=== PATIENT | male | born 1945 | race African-American/Black ===

== ENCOUNTER 2016-04-06 10:45 | Inpatient (IN) | payer BC, MEDICARE ==
[~2016-04-06] VITALS: Ht 175.3 cm; Wt 96.2 kg
[2016-04-06] MEDS ORDERED: ALBUTEROL SULFATE 2.5 MG/3 ML NEBU. CONT NEB ONE (11:30)
[2016-04-06] MEDS ORDERED: methylPREDNISolone SOD SUCC PF 125 MG/2 ML VIAL. IV ONE (11:30)
[2016-04-06 11:31] LABS: BASO % 0 % (0-3); EOS % 2 % (0-3); HEMOGLOBIN 14.7 g/dL (13.0-17.5); LYMPH # 0.5 x10^3/uL (1.0-4.8); LYMPH % 8 % (24-48); MEAN CORPUSCULAR HEMOGLOBIN 29 pg (25-35); MEAN CORPUSCULAR HGB CONC 34 g/dL (31-37); MEAN CORPUSCULAR VOLUME 85 fL (79-100); MONO % 10 % (0-9); NEUT % 80 % (31-73); PLATELET COUNT 194 x10^3/uL (140-400); RED BLOOD COUNT 5.17 x10^6/uL (4.30-5.70); RED CELL DISTRIBUTION WIDTH 14.7 % (11.5-14.5); WHITE BLOOD COUNT 6.7 x10^3/uL (4.0-11.0)
[2016-04-06 11:40] LABS: CALCIUM 8.7 mg/dL (8.5-10.1); CREATININE 1.3 mg/dL (0.7-1.3)
[2016-04-06 11:41] LABS: GFR 66.4
[2016-04-06 11:47] LABS: ALBUMIN 3.7 g/dL (3.4-5.0); ALBUMIN/GLOBULIN RATIO 1.1 (1.0-1.7); TOTAL BILIRUBIN 0.9 mg/dL (0.2-1.0); TOTAL PROTEIN 7.1 g/dL (6.4-8.2)
[2016-04-06 11:49] LABS: OBC FLU VALID
[2016-04-06 11:56] LABS: CKMB INDEX 0.1 % (0-4)
--- NOTE | 2016-04-06 12:00 | RAD ---
Portable chest, 04/06/2016: History: Shortness of breath, chest pain Comparison is made to a study from 10/06/2015. The heart size and pulmonary vascularity are normal. The lungs are clear. There is no evidence of pleural fluid. IMPRESSION: No acute cardiopulmonary abnormality is detected.
--- NOTE | 2016-04-06 12:17 | PHYS DOC ---
Past Medical History Past Medical History: Diabetes-Type II, Hypertension Past Surgical History: Other Additional Past Surgical Histo: R FOOT RECONSTRUCTION Additional Information: Nonsmoker Alcohol Use: Occasionally Drug Use: None Adult General Chief Complaint Chief Complaint: ASTHMA HPI HPI Patient is a 70 year old male who presents with productive cough and shortness of breath for 2 weeks. He has chest pain with his cough only. He reports chills , sore throat, nasal congestion. He denies known fever, ear pain, vomiting, or diarrhea. He has a history of asthma. He uses an albuterol inhaler and nebulizer machine as well as Advair Diskus for control of his asthma. He has not gotten relief from very frequent use of his inhaler and nebulizer at home over the last 2 days. He is unsure if he received a flu shot this year. His PCP is Dr. Dotson. His caul fat puller is Dr. Delaney. Review of Systems Review of Systems Constitutional: Reports chills with unknown fever. Eyes: Denies change in visual acuity, redness, or eye pain. [] HENT: Denies ear pain. Reports nasal congestion and sore throat. Respiratory: Reports productive cough and shortness of breath. Cardiovascular: Reports chest pain with coughing only. GI: Denies abdominal pain, nausea, vomiting, bloody stools or diarrhea. [] : Denies dysuria, hematuria or urinary frequency. [] Musculoskeletal: Denies back pain or joint pain. [] Integument: Denies rash or skin lesions. [] Neurologic: Denies headache, focal weakness or sensory changes. [] Endocrine: Denies polyuria or polydipsia. [] Psych: Denies anxiety or depression. [] All systems reviewed and negative unless otherwise stated in the HPI. Current Medications Current Medications Current Medications Medications (Trade) Dose Ordered Sig/Nathalie Start Time Stop Time Status Last Admin Dose Admin Albuterol Sulfate (Ventolin Neb Soln) 10 mg 1X ONCE 04/06/16 11:30 04/06/16 11:31 DC 04/06/16 11:42 10 MG Methylprednisolone Sodium Succinate (Solu-Medrol 125mg Vial) 125 mg 1X ONCE 04/06/16 11:30 04/06/16 11:31 DC 04/06/16 11:31 125 MG Allergies Allergies Allergies Coded Allergies Type Severity Reaction Last Updated Verified No Known Drug Allergies 04/06/16 No Physical Exam Physical Exam Constitutional: Well developed, well nourished, no acute distress, non-toxic appearance. [] HENT: Normocephalic, atraumatic, bilateral external ears normal, oropharynx moist, no oral exudates, nose normal. Bilateral TMs without erythema or bulging. There is no posterior pharyngeal erythema or tonsillar edema. Bilateral nasal turbinates are swollen and erythematous with purulent drainage. Eyes: PERRLA, EOMI, conjunctiva normal, no discharge. [] Neck: Normal range of motion, no tenderness, supple, no stridor. [] Cardiovascular: Heart regular, tachycardiac, no murmur. Lungs & Thorax: Bilateral breath sounds are diminished diffusely without wheezes, rales, or rhonchi. Mild respiratory distress. Skin: Warm, dry, no erythema, no rash. [] Extremities: No tenderness, no cyanosis, no clubbing, ROM intact, no edema. 2+ DP pulses bilaterally. Neurologic: Alert and oriented X 3, normal motor function, normal sensory function, no focal deficits noted. [] Psychologic: Affect normal, judgement normal, mood normal. [] Current Patient Data Vital Signs Vital Signs Date Time Temp Pulse Resp B/P Pulse Ox O2 Delivery O2 Flow Rate FiO2 04/06/16 13:25 99.9 123 19 142/71 93 Room Air 99.9 Lab Values Laboratory Tests Test 04/06/16 11:04 04/06/16 11:15 Influenza Type A Antigen Positive (NEGATIVE) Influenza Type B Antigen Negative (NEGATIVE) White Blood Count 6.7x10^3/uL (4.0-11.0) Red Blood Count 5.17x10^6/uL (4.30-5.70) Hemoglobin 14.7g/dL (13.0-17.5) Hematocrit 44.0% (39.0-53.0) Mean Corpuscular Volume 85fL (79-100) Mean Corpuscular Hemoglobin 29pg (25-35) Mean Corpuscular Hemoglobin Concent 34g/dL (31-37) Red Cell Distribution Width 14.7% (11.5-14.5) H Platelet Count 194x10^3/uL (140-400) Neutrophils (%) (Auto) 80% (31-73) H Lymphocytes (%) (Auto) 8% (24-48) L Monocytes (%) (Auto) 10% (0-9) H Eosinophils (%) (Auto) 2% (0-3) Basophils (%) (Auto) 0% (0-3) Neutrophils # (Auto) 5.3x10^3uL (1.8-7.7) Lymphocytes # (Auto) 0.5x10^3/uL (1.0-4.8) L Monocytes # (Auto) 0.6x10^3/uL (0.0-1.1) Eosinophils # (Auto) 0.2x10^3/uL (0.0-0.7) Basophils # (Auto) 0.0x10^3/uL (0.0-0.2) Sodium Level 143mmol/L (136-145) Potassium Level 4.0mmol/L (3.5-5.1) Chloride Level 105mmol/L (98-107) Carbon Dioxide Level 27mmol/L (21-32) Anion Gap 11 (6-14) Blood Urea Nitrogen 13mg/dL (8-26) Creatinine 1.3mg/dL (0.7-1.3) Estimated GFR (Cockcroft-Gault) 66.4 BUN/Creatinine Ratio 10 (6-20) Glucose Level 152mg/dL (70-99) H Calcium Level 8.7mg/dL (8.5-10.1) Total Bilirubin 0.9mg/dL (0.2-1.0) Aspartate Amino Transferase (AST) 38U/L (15-37) H Alanine Aminotransferase (ALT) 32U/L (16-63) Alkaline Phosphatase 119U/L (46-116) H Creatine Kinase 2184U/L (39-308) H Creatine Kinase MB (Mass) 3.0ng/mL (0.0-3.6) Creatine Kinase MB Relative Index 0.1% (0-4) Troponin I Quantitative < 0.017ng/mL (0.000-0.055) KU-Sto-D-Type Natriuretic Peptide 252pg/mL (0-124) H Total Protein 7.1g/dL (6.4-8.2) Albumin 3.7g/dL (3.4-5.0) Albumin/Globulin Ratio 1.1 (1.0-1.7) Laboratory Tests 04/06/16 11:15 Laboratory Tests 04/06/16 11:15 EKG EKG EKG at 1106. Heart rate 130 bpm. Sinus tachycardia without acute ischemic changes or STEMI, as interpreted by Dr. Escamilla. Radiology/Procedures Radiology/Procedures REASON: cough, soa, cp PROCEDURE: PORTABLE CHEST 1V Portable chest, 04/06/2016: History: Shortness of breath, chest pain Comparison is made to a study from 10/06/2015. The heart size and pulmonary vascularity are normal. The lungs are clear. There is no evidence of pleural fluid. IMPRESSION: No acute cardiopulmonary abnormality is detected. Course & Med Decision Making Course & Med Decision Making Pertinent Labs and Imaging studies reviewed. (See chart for details) Patient presents with productive cough and shortness of breath for 2 days. On exam, his lungs sounds are diffusely diminished. He received a 1 hour nebulizer albuterol treatment in the emergency department. He reported improved breathing with increased air movement with auscultation. He has mild wheezes diffusely without rales or rhonchi. His oxygen saturation is 91% on room air after the hour-long treatment. Chest x-ray does not show any focal infiltrates. He is positive for influenza. There are no significant laboratory abnormalities. EKG shows a sinus tachycardia, likely due to albuterol use. He was also given IV Solu-Medrol and IV fluids. I offered admission to the hospital for asthma exacerbation with influenza. The patient agrees with plan to stay in the hospital for nebulizer treatments, steroids, and supportive oxygen. His PCP, Dr. Phillip, accepts admission. He remained stable in the emergency department. Dragon Disclaimer Dragon Disclaimer This electronic medical record was generated, in whole or in part, using a voice recognition dictation system. Departure Departure Impression: Primary Impression: Asthma exacerbation Additional Impression: Influenza A Disposition: 09 ADMITTED INPATIENT Admitting Physician: Sanchez Dotson Condition: IMPROVED Referrals: SANCHEZ DOTSON MD (PCP) Problem Qualifiers TENZIN BOWENS Apr 06, 2016 12:17
--- NOTE | 2016-04-06 12:57 | EKG ---
[facility] [address] [place] [address] Test Date: 2016-04-06 Test Time: 11:06:16 Pat Name: ELPIDIO ESCOBEDO Department: Room: Gender: M Speech Therapy Director: : 1945 Requested By: TENZIN BOWENS Order Number: [id number] Reading MD: Measurements Intervals Edmond Rate: 130 P: -71 WI: 158 QRS: 103 QRSD: 88 T: 63 QT: 294 QTc: 439 Interpretive Statements SUPRAVENTRICULAR RHYTHM RIGHTWARD AXIS QRS(T) CONTOUR ABNORMALITY CONSISTENT WITH ANTEROSEPTAL INFARCT AGE UNDETERMINED ABNORMAL ECG RI6.01
[2016-04-06] MEDS ORDERED: IV NORMAL SALINE 1000ML BAG 1,000 ML IV ONE (14:30)
[2016-04-06] MEDS ORDERED: ACETAMINOPHEN 325 MG TABLET. PO ONE (14:30)
[2016-04-06] MEDS: OSELTAMIVIR 75 MG CAPSULE PO SCH ×2 (14:42→21:20)
[2016-04-06] MEDS: IPRATRPIUM/ALBUTEROL 0.5/2.5MG 3 ML NEBU. NEB SCH ×3 (14:46→21:31)
--- NOTE | 2016-04-06 16:10 | ACF ---
Admission Forms Criteria ASTHMA Clinical Indications for Admission to Inpatient Care (Place 'X' for any and all applicable criteria): Admission is indicated for ANY ONE of the following (1)(2)(3)(4)(5): [ ]I. Absent or markedly diminished breath sounds (silent chest) [ ]II. Oxygen saturation < 92% [ ]III. PaCO2 = / > 42 mm Hg (5.6 kPa) [ ]IV. Peak expiratory flow rate < 40% of predicted or personal best after treatment. [ ]V. Peak expiratory flow rate < 33% of predicted or personal before after treatment [ ]. Change in mental status [ ]VII. Ventilatory support required [ ]VIII. PaO2 < 60 mm Hg (8.0 kPa) [ ]IX. Cyanosis [ ]X. Cardiac dysrhythmia (e.g., bradycardia) [ ]XI. Hemodynamic instability [ ]XII. Radiographic evidence of complication requiring inpatient treatment (e.g., pneumonia, pneumothorax) [X]XIII. Inpatient admission required rather than observation care (also use Asthma: Observation Care guideline as appropriate) because of ANY ONE of the following: [X]a) Respiratory finding that is severe or persistent (eg, dyspnea, tachypnea, accessory muscle use) [ ]b) Airflow measurements less than 60% of predicted or personal best that persist (e.g., over 24 hours) or worsen despite treatments [ ]c) Supplemental oxygen or respiratory treatments for over 24 hours that are performable only in acute inpatient setting [ ]d) Other condition, treatment or monitoring requiring inpatient admission. Extended stay beyond goal length of stay may be needed for (26)(27)(28): [ ]a) Severe respiratory failure (23) (29) (30) [ ]b) Secondary causes and complications (25) [ ]c) Status asthmaticus [ ]d) Chronic obstructive asthma [ ]e) Older patients (29) [ ]f) Slow resolution [ ]g) Clinically significant exacerbation of comorbidities (eg, lupillo. heart failure, atrial fibrillation) The original [employer] content created by [employer] has been revised. The portions of the content which have been revised are identified through the use of italic text or in bold, and [facility] [employer] has neither reviewed nor approved the modified material. All other unmodified content is copyright [facility] Please see references footnoted in the original [facility] edition 2016 Admission Criteria Met?: Yes VANNESSA PARIS Apr 06, 2016 16:10
[2016-04-06] MEDS ORDERED: INSU100I13 SQ (17:28)
[2016-04-06] MEDS ORDERED: INSU100I17 SQ (17:30)
[2016-04-06] MEDS ORDERED: FLUT1DIS5 IH (17:30)
[2016-04-06] MEDS ORDERED: PROAIR HFA8.5 GM INH (17:31)
[2016-04-06] MEDS ORDERED: ALBU2.5V5 NEB (17:32)
[2016-04-06] MEDS ORDERED: VALS160T3 PO (17:33)
[2016-04-06] MEDS ORDERED: GABA-586 PO (17:44)
[2016-04-06 18:24] VITALS: BP 166/88
[2016-04-06 19:38] VITALS: BP 154/81
[2016-04-06] MEDS ORDERED: ALBUTEROL SULFATE 2.5 MG/3 ML NEBU. NEB PRN (22:45)
[2016-04-06] MEDS ORDERED: DEXTROSE 50% 25 GM / 50ML DISP.SYRIN. IV PRN (22:45)
[2016-04-06] MEDS ORDERED: NON FORMULARY ITEM (Albuterol Sulfate (Proair Hfa Inhaler) 1 PUFF) INH SCH (22:45)
[2016-04-06 23:23] VITALS: BP 150/79
[2016-04-07] MEDS ORDERED: INSULIN DETEMIR 300 UNITS/3 ML INSULN.PEN. SQ SCH ×2 (00:15→21:00)
[2016-04-07] MEDS: IV NORMAL SALINE 1000ML BAG 1,000 ML IV SCH ×2 (00:42→10:38)
[2016-04-07 03:56] VITALS: BP 122/73
[2016-04-07 07:46] VITALS: BP 136/76
[2016-04-07] MEDS ORDERED: BUDESONIDE 0.5 MG/2 ML NEBU NEB SCH (08:00)
[2016-04-07] MEDS: ALBUTEROL SULFATE 2.5 MG/3 ML NEBU. NEB SCH ×2 (08:00→11:46)
[2016-04-07] MEDS: IPRATRPIUM/ALBUTEROL 0.5/2.5MG 3 ML NEBU. NEB SCH (08:12)
[2016-04-07] MEDS ORDERED: INFLUENZA VAX SCREEN BY RX. MC PRN (08:15)
[2016-04-07] MEDS ORDERED: FLU VACC QUAD 2016-17 (36MOS+)/PF 0.5 ML SYRINGE. VAX IM ONE (08:30)
[2016-04-07] MEDS: OSELTAMIVIR 75 MG CAPSULE PO SCH (08:37)
[2016-04-07] MEDS: INSULIN ASPART 300 UNITS/3 ML INSULN.PEN SQ SCH ×4 (08:39→12:00)
[2016-04-07] MEDS ORDERED: LOSARTAN POTASSIUM 50 MG TABLET. PO SCH (09:00)
[2016-04-07] MEDS ORDERED: NON FORMULARY ITEM (Fluticasone/Salmeterol (Advair 500-50 Diskus) 1 PUFF) IH SCH (09:00)
[2016-04-07] MEDS ORDERED: GABAPENTIN 300 MG CAPSULE. PO SCH (09:00)
[2016-04-07] MEDS ORDERED: IPRA3AMP NEB (09:30)
[2016-04-07] MEDS ORDERED: METH4TAB2 PO (09:30)
[2016-04-07] MEDS ORDERED: AZIT250T PO (09:30)
[2016-04-07] MEDS ORDERED: OSEL75CA PO (09:30)
--- NOTE | 2016-04-07 09:33 | PDOC ---
OBJECTIVE Vital Signs Vital Signs Date Time Temp Pulse Resp B/P Pulse Ox O2 Delivery O2 Flow Rate FiO2 04/07/16 08:37 98 136/76 04/07/16 08:14 95 Room Air 04/07/16 08:00 Room Air 04/07/16 07:46 97.7 98 16 136/76 96 Room Air 97.7 04/07/16 03:56 96.8 104 16 122/73 95 Room Air 96.8 04/06/16 23:23 97.9 116 16 150/79 95 Room Air 97.9 04/06/16 21:34 97 Room Air 04/06/16 20:00 Nasal Cannula 2.0 04/06/16 19:38 97.5 117 16 154/81 93 Room Air 97.5 04/06/16 18:25 Room Air 04/06/16 18:24 97.7 110 18 166/88 93 Room Air 97.7 04/06/16 16:40 120 25 139/72 94 Nasal Cannula 2 04/06/16 16:10 122 29 178/88 92 Nasal Cannula 2 04/06/16 15:10 126 29 137/80 95 Nasal Cannula 2 04/06/16 14:46 96 Nasal Cannula 2.0 04/06/16 14:13 134 30 128/79 93 Nasal Cannula 2 04/06/16 13:25 99.9 123 19 142/71 93 Room Air 99.9 04/06/16 12:26 128 27 129/61 Room Air 04/06/16 11:56 130 32 140/67 99 Room Air 04/06/16 11:43 94 Room Air 04/06/16 11:26 132 27 138/67 97 Room Air 04/06/16 11:00 99.7 127 28 172/84 93 Room Air 99.7 I & O Intake and Output 04/07/16 07:00 Intake Total 210 ml Balance 210 ml Intake Oral 210 ml # Voids 2 # Bowel Movements 2 ASSESSMENT/PLAN Assessment/Plan [id number] H&P dictated Problems: COMMENT Lab Laboratory Tests Test 04/06/16 11:04 04/06/16 11:15 04/06/16 21:27 04/07/16 07:38 Influenza Type A Antigen Positive (NEGATIVE) Influenza Type B Antigen Negative (NEGATIVE) White Blood Count 6.7x10^3/uL (4.0-11.0) Red Blood Count 5.17x10^6/uL (4.30-5.70) Hemoglobin 14.7g/dL (13.0-17.5) Hematocrit 44.0% (39.0-53.0) Mean Corpuscular Volume 85fL (79-100) Mean Corpuscular Hemoglobin 29pg (25-35) Mean Corpuscular Hemoglobin Concent 34g/dL (31-37) Red Cell Distribution Width 14.7% (11.5-14.5) Platelet Count 194x10^3/uL (140-400) Neutrophils (%) (Auto) 80% (31-73) Lymphocytes (%) (Auto) 8% (24-48) Monocytes (%) (Auto) 10% (0-9) Eosinophils (%) (Auto) 2% (0-3) Basophils (%) (Auto) 0% (0-3) Neutrophils # (Auto) 5.3x10^3uL (1.8-7.7) Lymphocytes # (Auto) 0.5x10^3/uL (1.0-4.8) Monocytes # (Auto) 0.6x10^3/uL (0.0-1.1) Eosinophils # (Auto) 0.2x10^3/uL (0.0-0.7) Basophils # (Auto) 0.0x10^3/uL (0.0-0.2) Sodium Level 143mmol/L (136-145) Potassium Level 4.0mmol/L (3.5-5.1) Chloride Level 105mmol/L (98-107) Carbon Dioxide Level 27mmol/L (21-32) Anion Gap 11 (6-14) Blood Urea Nitrogen 13mg/dL (8-26) Creatinine 1.3mg/dL (0.7-1.3) Estimated GFR (Cockcroft-Gault) 66.4 BUN/Creatinine Ratio 10 (6-20) Glucose Level 152mg/dL (70-99) Calcium Level 8.7mg/dL (8.5-10.1) Total Bilirubin 0.9mg/dL (0.2-1.0) Aspartate Amino Transf (AST/SGOT) 38U/L (15-37) Alanine Aminotransferase (ALT/SGPT) 32U/L (16-63) Alkaline Phosphatase 119U/L (46-116) Creatine Kinase 2184U/L (39-308) Creatine Kinase MB (Mass) 3.0ng/mL (0.0-3.6) Creatine Kinase MB Relative Index 0.1% (0-4) Troponin I Quantitative < 0.017ng/mL (0.000-0.055) XA-Nwq-U-Type Natriuretic Peptide 252pg/mL (0-124) Total Protein 7.1g/dL (6.4-8.2) Albumin 3.7g/dL (3.4-5.0) Albumin/Globulin Ratio 1.1 (1.0-1.7) Glucose (Fingerstick) 372mg/dL (70-99) 178mg/dL (70-99) SANCHEZ DOTSON MD Apr 07, 2016 09:33
--- NOTE | 2016-04-07 09:33 | PDOC3 ---
Discharge Summary* Date of Admission: Apr 06, 2016 Date of Discharge: Apr 07, 2016 Admitting Diagnosis Problems Medical Problems: (1) Asthma exacerbation Status: Acute (2) Influenza A Status: Acute Final Diagnosis 1- Flu A 2-Asthma/COPD exacerbation 3-HTN 4- Hx elevated PSA 5- osteoarthritis Problems Medical Problems: (1) Asthma exacerbation Status: Acute (2) Influenza A Status: Acute Procedures CXR venous doppler R leg neg Brief Hospital Course Mr. Alvarez is a 70 old [sex] who presented with [ ] Disposition/Orders: D/C to Home CONDITION AT DISCHARGE: Improved Diet: Cardiac, Consistent Carbohydrate Scheduled Albuterol Sulfate (Proair Hfa Inhaler) 1 PUFF INH PRN Q6HRS (Reported) Azithromycin (Zithromax) 1 PKG PO UD Fluticasone/Salmeterol (Advair 500-50 Diskus) 1 PUFF IH BID (Reported) Gabapentin (Gabapentin) 300 MG PO DAILY (Reported) Insulin Aspart (Novolog Flexpen) 18 UNIT SQ TIDBFRMEAL (Reported) Insulin Glargine,Hum.rec.anlog (Lantus Solostar) 60 UNIT SQ QHS (Reported) Ipratropium/Albuterol Sulfate (Duoneb 0.5-3(2.5) Mg/3 Ml) 3 ML NEB RTQID Methylprednisolone (Medrol) 4 MG PO DAILY Oseltamivir Phosphate (Tamiflu) 75 MG PO BID Valsartan (Diovan) 160 MG PO DAILY (Reported) Discontinued Medications Albuterol Sulfate (Albuterol Sulfate Neb Soln) 2.5 MG NEB PRN (Reported) FOLLOW UP APPOINTMENT: Gary 2 weeks Time Spent Total time spent with patient [] minutes for coordination of care, counseling, and education. SANCHEZ DOTSON MD Apr 07, 2016 09:33
[2016-04-07 11:09] VITALS: BP 126/76
--- NOTE | 2016-04-07 12:18 | RAD ---
INDICATION: Right leg swelling COMPARISON: None. TECHNIQUE: Grayscale, color and spectral doppler ultrasound images were obtained of the right lower extremity venous vasculature. RIGHT: No thrombus identified in the common femoral vein, femoral vein, popliteal vein or visualized calf veins. IMPRESSION: 1. No thrombus identified in deep venous system of right lower extremity.
[2016-04-07 15:06] VITALS: BP 129/80
--- NOTE | 2016-04-08 00:54 | HP ---
ADMIT DATE: HISTORY OF PRESENT ILLNESS: The patient is a 70-year-old gentleman who presented to the Emergency Room complaining of a cough productive to yellowish sputum and some shortness of breath of 2 weeks' duration. He also had some chest pain with cough. He reported chills, sore throat, nasal congestion. Denies fever, nausea, vomiting, diarrhea. He does have a history of asthma and COPD. He uses his nebulizer, but did not seem to give him relief at home. He presented to the Emergency Room when he felt that he could not breathe. PAST MEDICAL HISTORY: Significant for hypertension, asthma, COPD, arthritis, diabetes mellitus. Does have also history of PSA elevation that apparently was worked up and the urologist has assured him that it was not cancer. Records of that is not available to me at this point. REVIEW OF SYSTEMS: CONSTITUTIONAL: Reports chills, but not sure if he is having fever. EYES: Denies changes in his vision. HEENT: He does have congestion and sore throat. RESPIRATORY: He does report shortness of breath and wheezing. CARDIOVASCULAR: Reports chest wall pain with coughing. GASTROINTESTINAL: Denies nausea, vomiting or diarrhea. GENITOURINARY: Denies dysuria. MUSCULOSKELETAL: He does have arthritis pain. NEUROLOGY: No acute changes, no focal weakness, no headache. DERMATOLOGIC: No rashes. PHYSICAL EXAMINATION: GENERAL: He is alert and oriented. HEENT: Normocephalic, atraumatic. EYES: Conjunctivae color is normal. NECK: Supple. CARDIOVASCULAR: Heart has regular rate and rhythm. Mildly tachycardic. LUNGS: With bilateral wheezes and decreased air movement. SKIN: Warm and dry. EXTREMITIES: He does have chronic edema in the right lower extremity. Mild calf pain, left lower extremity normal. He has a history of injury to his right lower extremity. NEUROLOGIC: Normal with no focal deficit. His chest x-ray with no acute changes. IMPRESSION: 1. Acute asthma exacerbation. 2. Influenza A positive. 3. Hypertension and hypertensive cardiovascular disease. 4. Osteoarthritis. 5. Diabetes mellitus. 6. History of elevated PSA. SANCHEZ DOTSON MD DR: ARTI/sharon JOB#: [id number] / [id number]
== END 2016-04-07 15:30 | disposition home or self-care (01) | DRG 153 ==
LOC: ER 10:45 → ED HOLD 13:55 → 6 SOUTH 17:10
PROVIDERS: ADMIT Internal Medicine; ATTEND Internal Medicine
DX: J11.1 Influenza due to unidentified influenza virus with other respiratory manifestations (principal); J44.1 Chronic obstructive pulmonary disease with (acute) exacerbation; J45.901 Unspecified asthma with (acute) exacerbation; E11.9 Type 2 diabetes mellitus without complications; I11.9 Hypertensive heart disease without heart failure; M19.90 Unspecified osteoarthritis, unspecified site; Z79.899 Other long term (current) drug therapy
CPT/HCPCS: 36415; 71010; 80053; 82553; 82947; 83880; 84484; 85027; 87804; 90686; 93005; 93971; 94250; 94640; 94644; 94760; 96361; 96374; J1815; J2930; J7030; J7042; J7620; 99285-25

== ENCOUNTER → 2016-06-12 | Outpatient (CLI) | payer MEDICARE ==
[~2016-06-12] VITALS: Ht 175.3 cm; Wt 94.3 kg
[~2016-06-12] MED LIST: ALBU2.5V5 NEB; AZIT250T PO; FLUT1DIS5 IH; GABA-586 PO; INSU100I13 SQ; INSU100I17 SQ; IPRA3AMP NEB; LIDOCAINE 1% / SOD BICARB 8.4% 20 ML VIAL. IJ ONE; METH4TAB2 PO; OSEL75CA PO; PROAIR HFA8.5 GM INH; VALS160T3 PO
[2016-06-12 08:31] VITALS: BP 128/74
--- NOTE | 2016-06-12 12:23 | OP ---
DATE OF SURGERY: 06/12/2016 OPERATION: Transrectal ultrasound and prostate needle biopsy. SURGEON: Giovanni Durand MD. ANESTHESIA: Local. PREOPERATIVE DIAGNOSIS: Elevated prostate-specific antigen. POSTOPERATIVE DIAGNOSIS: Elevated prostate-specific antigen. INDICATIONS: The patient is a very pleasant 70-year-old -[place]in[place] male with history of elevated PSA in the 7 range last year, and this year on repeat, it is 6.1. No family history of any prostate cancer. No nodules on digital rectal examination. I have discussed with the patient the options, alternatives, benefits, risks, and possible complications of observation versus transrectal ultrasound of prostate and needle biopsies to rule out adenocarcinoma of the prostate. The patient understands this and does wish to proceed ahead with the operation. DESCRIPTION OF PROCEDURE: After obtaining an informed consent, the patient was taken to the ultrasound suite and placed in the left lateral decubitus position. The patient had taken his antibiotics preprocedurally, and he has antibiotics to take postprocedurally. The patient has been off his baby aspirin for the past 2 weeks, and he knows to be off of it for the next week before restarting it. Rectal examination was then performed. The patient had good sphincter tone. Prostate is smooth without nodules, overall size 40 grams by palpation. Transrectal ultrasound was then performed with the biplanar probe. Prostate was inspected in both transverse and sagittal planes. Bilateral prosthetic block was placed with 1% lidocaine plain. Prostate size was then calculated and found to be 55 cubic cm. No obvious hypoechoic areas were identified. Following this, Sextant biopsies were then obtained with the Bard biopty gun and biopty needle. Biopsies were sent for pathologic analysis. Following this, the probe was removed from the patient. The patient had just a moderate amount of oozing from the biopsy sites. The patient tolerated the procedure very well and left the procedure room in stable condition. The patient was given postprocedural instructions and told to finish off the antibiotic coverage for the procedure. We will contact the patient back with the results of his biopsies when they become available, and the patient has a followup appointment with Dr. Durand in Urology office on 07/06/2015 at 2:45. GIOVANNI DURAND MD DR: TOM/sharon JOB#: [id number] / [id number]
== END | disposition home or self-care (01) ==
LOC: US 07:55
PROVIDERS: ATTEND Urology
DX: R97.20 Elevated prostate specific antigen [PSA] (principal)
CPT/HCPCS: 55700; 76872; 76942

== ENCOUNTER → 2016-06-14 | Outpatient (CLI) | payer MEDICARE ==
[2016-06-12 08:31] VITALS: BP 128/74
[~2016-06-14] MED LIST changes: -LIDOCAINE 1% / SOD BICARB 8.4% 20 ML VIAL. IJ ONE
== END | disposition home or self-care (01) ==
LOC: ECHO 14:51
PROVIDERS: ATTEND Internal Medicine Cardiovascular Disease
DX: R94.31 Abnormal electrocardiogram [ECG] [EKG] (principal)
CPT/HCPCS: 93306

== ENCOUNTER → 2018-10-01 | Outpatient (CLI) | payer BC ==
[2018-08-11 15:43] VITALS: BP 185/84
[~2018-10-01] MED LIST changes: +ALBU2.5V8 INH; -GABA-586 PO; +GABA300C18 PO; -IPRA3AMP NEB; +IPRA3AMP29 NEB; -PROAIR HFA8.5 GM INH
--- NOTE | 2018-10-01 08:20 | RAD ---
EXAM: PA and Lateral Views of the Chest DATE: 10/01/2018 12:00 AM INDICATION: COPD COMPARISON: 06/27/2016 FINDINGS: Heart is not enlarged. Aorta is mildly tortuous. No lobar consolidation. No pleural effusion or pneumothorax. IMPRESSION: 1. No radiographic evidence for acute cardiopulmonary process. Electronically signed by: Bruce Craig MD (10/01/2018 8:17 AM) [facility]
--- NOTE | 2018-10-01 15:29 | RAD ---
KUB Clinical indications: Flank pain. FINDINGS: No obstructive bowel pattern is evident. There is mild fecal retention throughout the colon and rectum. Surgical clips are seen within the pelvis bilaterally. Calcified phleboliths are seen within the left side of the anatomic pelvis. No radiopaque stone is seen overlying either kidney. IMPRESSION: No obstructive bowel pattern. Electronically signed by: Fredi Rolon MD (10/01/2018 3:26 PM) [id number]
--- NOTE | 2018-10-01 15:38 | RAD ---
Three-view lumbar spine series Clinical indications: Low back pain FINDINGS: Transverse processes are intact. No compression fracture or discitis or lytic process or anterolisthesis is evident. Degenerative endplate spurring is seen throughout the lumbar spine. Degenerative disc space narrowing is seen at L3-4 Impression: No acute fracture. Electronically signed by: Fredi Rolon MD (10/01/2018 3:34 PM) [id number]
== END | disposition home or self-care (01) ==
LOC: RAD 06:30
PROVIDERS: ATTEND Physician Assistant Surgical
DX: J44.9 Chronic obstructive pulmonary disease, unspecified (principal); I87.8 Other specified disorders of veins; K59.09 Other constipation; M51.36 Other intervertebral disc degeneration, lumbar region; M48.061 Spinal stenosis, lumbar region without neurogenic claudication; M46.06 Spinal enthesopathy, lumbar region
CPT/HCPCS: 71046; 72100; 74018

== ENCOUNTER → 2019-05-26 | Outpatient (CLI) | payer BC ==
[2018-08-11 15:43] VITALS: BP 185/84
--- NOTE | 2019-05-26 12:19 | RAD ---
Chest PA and lateral: Reason for examination: Chest pain. Comparison is made to previous study dated 10/01/2018. The heart size is normal. Mediastinum is unremarkable. Lung gary are clear. No acute bony abnormalities are seen. Impression: No acute cardiopulmonary disease. Electronically signed by: Desirae Dye MD (05/26/2019 12:16 PM) [id number]
--- NOTE | 2019-05-26 13:59 | RAD ---
Abdominal ultrasound complete: Reason for examination: Chest and right flank pain. The pancreas is obscured by bowel gas. The visualized portion of the inferior vena cava shows no abnormality. The abdominal aorta is normal in course and caliber measuring 2 cm in greatest dimension. No aneurysm or dissection is apparent. The liver is homogeneous and normal in size at 17.8 cm with no focal lesion seen. Portal vein is patent. Gallbladder shows cholelithiasis without wall thickening. Common bile duct is normal in caliber at 3 mm. Right kidney measures 13.1 x 4.7 x 5.2 cm in greatest dimension with normal cortical medullary differentiation and good vascular flow. The left kidney measures 12.7 x 5.0 x 6.1 cm in greatest dimension and shows normal cortical medullary differentiation with good vascular flow. No renal masses or hydronephrosis are evident. The spleen is normal in size at 11.2 cm with no focal abnormality seen. IMPRESSION: Cholelithiasis. No other focal abnormality seen in the abdomen. Electronically signed by: Desirae Dye MD (05/26/2019 1:56 PM) [email or web address]
== END ==
LOC: RAD 11:38
PROVIDERS: ATTEND Family Medicine
DX: K80.20 Calculus of gallbladder without cholecystitis without obstruction (principal); R10.9 Unspecified abdominal pain
CPT/HCPCS: 71046; 76700

== ENCOUNTER 2019-06-13 08:00 | Day surgery (SDC) | payer BC ==
[~2019-06-13] VITALS: Ht 172.7 cm; Wt 93.9 kg
[~2019-06-13 08:00] MED LIST changes: +ACETAMINOPHEN 500 MG TABLET PO ONE; +CYCL10TA2 PO; +DICL75TA PO; +FLUT1BLS3 IH; +HYDROmorphone 2 MG/ML VIAL IV PRN; +ICOS1CAP PO; +INSU100V6 SQ; +IV RINGERS,LACTATED 1000ML 1,000 ML IV SCH; +LIDOCAINE 1% PF 2 ML VIAL. ID PRN; +LINA5TAB PO; +LOSA100T2 PO; +MONT10TA49 PO; +MORPHINE SULFATE 2 MG/ML VIAL. IV PRN; +ONDANSETRON PF 4 MG/2 ML VIAL. IV PRN; +PROCHLORPERAZINE 10 MG/2 ML VIAL. IV PRN; +fentaNYL PF VIAL 100 MCG/2 ML VIAL IV PRN
[2019-06-13] MEDS ORDERED: fentaNYL PF VIAL 100 MCG/2 ML VIAL ONE ×3 (08:06→10:37)
[2019-06-13] MEDS ORDERED: PROPOFOL 20 ML IV ONE (08:07)
[2019-06-13] MEDS ORDERED: ONDANSETRON PF 4 MG/2 ML VIAL. ONE (08:07)
[2019-06-13] MEDS ORDERED: DEXAMETHASONE SOD PHOS 4 MG/ML VIAL ONE (08:07)
[2019-06-13] MEDS ORDERED: SEVOFLURANE 61 TO 120 MINUTES. IH ONE (08:07)
[2019-06-13] MEDS ORDERED: LIDOCAINE 2% PF 5 ML VIAL. ONE (08:07)
[2019-06-13] MEDS: INSULIN LISPRO 100 UNIT/ML 3ML VIAL for OP,RR ONLY. SQ PRN ×2 (08:45→10:03)
[2019-06-13] MEDS ORDERED: BUPIVACAINE-EPI 0.25%-1:200000 MPF 30 ML VIAL. ONE (08:46)
[2019-06-13] MEDS ORDERED: SURGICEL HEMOSTAT 4X8 EACH. ONE (08:46)
[2019-06-13] MEDS ORDERED: IOHEXOL 300 MG/ML 50 ML VIAL. ONE (08:46)
[2019-06-13] MEDS ORDERED: GLYCOPYRROLATE 1 MG/5 ML VIAL. ONE ×2 (09:25)
[2019-06-13] MEDS ORDERED: NEOSTIGMINE METHYLSULFATE 5 MG/5 ML SYRINGE. ONE (09:25)
[2019-06-13] MEDS ORDERED: PHENYLEPHRINE in 0.9% NACL PF 1 MG/10 ML SYRINGE. IV ONE (09:34)
[2019-06-13] MEDS ORDERED: KETOROLAC 30 MG/ML VIAL. ONE (09:42)
--- NOTE | 2019-06-13 09:46 | PDOC4 ---
Operative Note Operative Note Date: 06/13/2019 Preoperative diagnosis: Chronic cholecystitis cholelithiasis Postoperative diagnosis: Same Procedure: Laparoscopic cholecystectomy Surgeon: Yuval Specimen: Gallbladder Dictation: Patient is a 73-year-old male whose had right upper quadrant abdominal pain and has had a couple visits to the emergency department for this pain. Ultrasounds of the right upper quadrant showed gallstones and mildly thickened gallbladder wall the procedure of laparoscopic cholecystectomy was explained to the patient detail respite effects were also discussed including bleeding infection injury to intra-abdominal contents possibly necessitating further open operations alternatives to this procedure also discussed with the patient who seemed to understand and gave both verbal and written consent to have the procedure performed. Patient was taken to the operating room placed in the supine position general anesthesia was initiated once patient was sleeping intubated his abdomen was prepped and draped usual sterile fashion using ChloraPrep and area just below the umbilicus was injected quarter percent Marcaine with epinephrine incision was made 11 blade scalpel and a varies needle was placed within the abdomen creating pneumoperitoneum once this was completely millimeter port was placed in a 5 mm camera was placed at the abdomen which was inspected no other abnormalities were noted a 5 mm port was placed in the epigastrium a 5 mm port was placed in the right midabdomen and a 5 mm port was placed in the right lateral abdomen all under direct visualization the dome of the gallbladder is grasped retracted cephalad the infundibulum the gallbladder is grasped directed laterally there are quite a few adhesions to omentum to the gallbladder these were taken down with blunt dissection posing the cystic duct and cystic artery both were doubly clipped and transected the gallbladder was taken off the liver with hook electrocautery placed in Endo Catch bag and removed in the umbilicus the right upper quadrant was irrigated and suctioned dry hemostasis deemed be appropriate the pneumoperitoneum was reduced all ports were removed the fascial defect at the umbilicus closed with [id number] 0 Vicryl suture and the skin was reapproximated all port sites for subcuticular Monocryl Mastisol Steri-Strips and island dressings were applied. Patient was awakened and extubated in the operating room taken to recovery in stable condition all sponge instrument needle counts listed as correct estimated blood loss 10 mL HOA GLASS MD Jun 13, 2019 09:46
--- NOTE | 2019-06-13 09:48 | DISCH ---
DISCHARGE INSTRUCTIONS Condition on Discharge Condition on Discharge: Stable Activity After Discharge Activity Instructions for Disc: Avoid exertion Other activity instructions: No lifting more than 20 pounds for 2 weeks Lifting Instructions after Dis: No heavy lifting Diet after Discharge Diet after Discharge: Cardiac, Low Fat, Diabetic No Calorie Level Diet Texture: Regular Liquid Texture: Thin Liquid Swallowing Supervision: None needed Wound Incision Care Other wound/incision instructi: May shower in 24 hours Checks after Discharge Checks after discharge: Check blood press - daily, Check blood sugar, ac/hs Contacting the DRKalen after DC Call your doctor for: If your condition worsens Follow-Up Follow up with: Dr. Glass in 2 weeks Treatment/Equipment after DC Adaptive Equipment Issued: None HOA GLASS MD Jun 13, 2019 09:48
[2019-06-13] MEDS: fentaNYL PF VIAL 100 MCG/2 ML VIAL IV PRN ×4 (10:13→11:02)
[2019-06-13] MEDS ORDERED: OXYC1TAB15 PO (10:16)
[2019-06-13] MEDS ORDERED: oxyCODONE/APAP 5/325 1 TAB TABLET ONE (10:58)
[2019-06-13 11:10] VITALS: BP 138/80
[2019-06-13] MEDS ORDERED: oxyCODONE/APAP 5/325 1 TAB TABLET PO ONE (11:15)
== END 2019-06-13 12:21 | disposition home or self-care (01) ==
LOC: SURG 08:00
PROVIDERS: ATTEND Surgery
DX: K80.10 Calculus of gallbladder with chronic cholecystitis without obstruction (principal); I10 Essential (primary) hypertension; E78.00 Pure hypercholesterolemia, unspecified; E11.40 Type 2 diabetes mellitus with diabetic neuropathy, unspecified; J45.909 Unspecified asthma, uncomplicated; E66.9 Obesity, unspecified; Z68.31 Body mass index [BMI] 31.0-31.9, adult; Z87.891 Personal history of nicotine dependence; Z98.890 Other specified postprocedural states; Z87.39 Personal history of other diseases of the musculoskeletal system and connective tissue; Z96.652 Presence of left artificial knee joint; Z98.42 Cataract extraction status, left eye; Z98.41 Cataract extraction status, right eye; Z72.89 Other problems related to lifestyle; Z96.1 Presence of intraocular lens
CPT/HCPCS: 47562; 82962; A7015; J0696; J1100; J1815; J1885; J2370; J2405; J2704; J2710; J3010; J3490; J7030; Q9967

== ENCOUNTER → 2020-02-25 | Outpatient (CLI) | payer MEDICARE ==
[~2020-02-25] MED LIST changes: -ACETAMINOPHEN 500 MG TABLET PO ONE; -HYDROmorphone 2 MG/ML VIAL IV PRN; -IV RINGERS,LACTATED 1000ML 1,000 ML IV SCH; -LIDOCAINE 1% PF 2 ML VIAL. ID PRN; -MORPHINE SULFATE 2 MG/ML VIAL. IV PRN; -ONDANSETRON PF 4 MG/2 ML VIAL. IV PRN; +OXYC1TAB15 PO; -PROCHLORPERAZINE 10 MG/2 ML VIAL. IV PRN; -fentaNYL PF VIAL 100 MCG/2 ML VIAL IV PRN
--- NOTE | 2020-02-25 16:12 | KCIC ---
EXAM: Cervical spine, 4 views; thoracic spine, 2 views. HISTORY: Pain. COMPARISON: None. FINDINGS: Cervical spine: 4 views of cervical spine are obtained. There is slight reversal of cervical lordosis . There is no significant listhesis. There is degenerative endplate remodeling with disc space narrow ing and anterior predominant spurring at C5-C6 and C6-C7. There is additional endplate remodeling at the remainder of the cervical levels. There is multilevel facet arthropathy. Thoracic spine: 2 views of the thoracic spine are obtained. There is no listhesis. The vertebral bodi es are normal in height. There is multilevel endplate remodeling. IMPRESSION: 1. Multilevel degenerative change involving the cervical and thoracic spine, primarily at C5-C7. 2. No acute osseous finding. Electronically signed by: Elizabeth Trevino MD (02/25/2020 4:09 PM) [id number]
== END ==
LOC: KCIC 15:41
PROVIDERS: ATTEND Family Medicine
DX: M47.813 Spondylosis without myelopathy or radiculopathy, cervicothoracic region (principal); M54.2 Cervicalgia; M54.9 Dorsalgia, unspecified
CPT/HCPCS: 72040; 72072

== ENCOUNTER → 2020-04-15 | Outpatient (CLI) | payer MEDICARE ==
[~2020-04-15] MED LIST changes: +METH-38 PO; +OXYB5TAB10 PO; +TRAZ-123 PO
--- NOTE | 2020-04-16 08:54 | KCIC ---
MR CERVICAL SPINE WO History:Reason: ARM RADICULAR PAIN / Spl. Instructions: Sx 10-12 months, NKI. / History: Pain in left scapula and shoulder, worse when turning head to the right. Technique: Multiplanar, multi sequential noncontrast MR imaging was performed of the cervical spine. Comparison: None Findings: Straightening of the normal cervical lordosis. Normal vertebral body height. No fracture. No pathologic signal abnormality within the cervical spinal cord. C2-C3: Disc bulge. No canal narrowing. Cord flattening. Uncovertebral and facet arthropathy. Severe left and moderate right neuroforaminal narrowing. C3-C4: Posterior disc osteophyte complex. Severe canal narrowing. Cord flattening. Uncovertebral and facet arthropathy. Severe bilateral neuroforaminal narrowing. C4-C5: Posterior disc osteophyte complex with central disc protrusion. Mild to moderate canal narrow ing. Cord flattening. Slight cord abutment. Uncovertebral and facet arthropathy. Moderate bilateral n euroforaminal narrowing. C5-C6: Posterior disc osteophyte complex. Severe canal narrowing. Cord flattening. Uncovertebral and facet arthropathy. Severe bilateral neuroforaminal narrowing, left greater than right. C6-C7: Posterior disc osteophyte complex. Moderate canal narrowing. Cord flattening. Uncovertebral and facet arthropathy. Severe bilateral neuroforaminal narrowing, left greater than right. C7-T1: Posterior disc osteophyte complex. Mild canal narrowing. Uncovertebral and facet arthropathy. Severe right and moderate left neuroforaminal narrowing. T1-T2: Disc bulge. Mild canal narrowing. Uncovertebral and facet arthropathy. Severe bilateral neurof oraminal narrowing. Additional upper thoracic facet arthropathy contributing to neuroforaminal narrowing. Impression: 1. Advanced multilevel cervical spondylosis most prominent C3-C4 and C5-C6 with severe canal narrowi ng and cord flattening. 2. Additional moderate canal narrowing with cord flattening. 3. Multilevel severe neuroforaminal narrowing, as described. Electronically signed by: Cameron Younger DO (04/16/2020 8:52 AM) [id number]
== END ==
LOC: KCIC MRI 12:32
PROVIDERS: ATTEND Family Medicine
DX: M47.23 Other spondylosis with radiculopathy, cervicothoracic region (principal); M48.03 Spinal stenosis, cervicothoracic region; M25.78 Osteophyte, vertebrae
CPT/HCPCS: 72141

== ENCOUNTER → 2020-05-20 | Outpatient (CLI) | payer MEDICARE ==
--- NOTE | 2020-05-20 11:12 | PDOC1 ---
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 as well with repetitive motions a lot of weight lifting bearing requirements with his job patient reports now is becoming much more difficult because the pain is radiating to the base the neck and his left shoulder and his left arm radiating to the left hand specially in the second and third fingers on the left hand with numbness and tingling patient reports is worse with weightbearing repetitive motions reaching his left hand over his head or reaching forward with weightbearing as well patient reports it wakes him sleep about 4-5 times a night does not affect his bowel bladder control or ability to walk but is significantly impairing his activity at work and also driving with the left hand has become painful patient reports the pain is sharp with numbness and tingling in the left arm radiating the posterior deltoid posterior triceps anterior biceps anterior forearm into the hands and fingers none again with numbness and tingling in the thumb first and second fingers and second and third fingers as well. Patient rates his disability rat ing 0-10 10 being the worst is a 5 with family home responsibilities 8 with recreation social activity occupation self-care and life support activities. Patient has had physical therapy also is doing exercise daily with stretching and strengthening for upper back and neck but these are only temporarily helpful also taking Tylenol [id number] which helps at night to help him get some sleep but the pain is still significant during the day even with the Tylenol. Patient reports no complete motor loss of function but significant debility in the left upper extremity and hand right side without fatigue. PAST MEDICAL HISTORY: PMH: Arthritis, hypertension, insulin-dependent diabetes, prostate cancer, shortness of breath, hearing loss PREVIOUS SURGERIES: Past Surgical Hx: Prostatectomy, bilateral knee replacements, 2 toe amputations CURRENT MEDICATIONS: Current Meds: Active Scripts Medications Dose Route/Sig Max Daily Dose Days Date Category Robaxin-750 (Methocarbamol) 750 Mg Tablet 500 Mg PO QID 05/20/20 Reported Trazodone Hcl 100 Mg Tablet 1 Tab PO QHS 05/20/20 Reported Oxybutynin Chloride 5 Mg Tablet 1 Tab PO DAILY 05/20/20 Reported Montelukast Sodium Tablet (Montelukast Sodium) 10 Mg Tablet 10 Mg PO HS 06/09/19 Reported Humalog (Insulin Lispro) 100 Unit/1 Ml Vial 13 Unit SQ TIDAC 06/09/19 Reported Tradjenta (Linagliptin) 5 Mg Tablet 5 Mg PO DAILY 06/09/19 Reported Cyclobenzaprine Hcl 10 Mg Tablet 10 Mg PO QHS 06/09/19 Reported Diclofenac Sodium 75 Mg Tablet.dr 75 Mg PO BID 06/09/19 Reported Trelegy Ellipta 100-62.5-25 (Fluticasone/Umeclidin/Vilanter) 1 Each Blst.w.dev 1 Each IH DAILY 06/09/19 Reported Proair Hfa Inhaler (Albuterol Sulfate) 8.5 Gm Hfa.aer.ad 1 Puff INH PRN Q6HRS 04/06/16 Reported Lantus Solostar (Insulin Glargine,Hum.rec.anlog) 100 Unit/1 Ml Insuln.pen 35 Unit SQ QHS 04/06/16 Reported ALLERGIES; Allergies: Coded Allergies: No Known Drug Allergies (Unverified , 06/13/19) FAMILY HISTORY: Family Hx: No major medical problems or conditions that he is aware of SOCIAL HISTORY: Social Hx: Patient drinks about a sixpack of beer weekly does not smoke or use any illegal illicit or recreational drugs is lives with his spouse has 2 children living at home lives locally in [facility], 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 PHYSICAL EXAM: VS: Blood pressure is 143/89 pulse 93 respirations 18 temperature is 98.7 F height 5 feet 9 inches weight is 212 pounds PE: PHYSICAL EXAMINATION: GENERAL: The patient is awake, alert, oriented, appropriate, very pleasant demeanor HEENT: Shows normocephalic, atraumatic. Extraocular movements are intact and symmetrical. Oral cavity: Mucous membranes moist and pink. Dentition is intact. NECK: Shows anterior throat supple without palpable lymphadenopathy noted. Swallow reflex symmetrical. CHEST: Shows normal on inspection. Breath sounds are clear bilaterally, no rales rhonchi wheezes auscultated. HEART: Shows S1, S2 clear. No murmurs auscultated. ABDOMEN: Soft, nontender, nondistended, obese. No palpable organomegaly is noted. No rebound or guarding demonstrated. BACK: Shows spine grossly in the midline. Normal-appearing cervical lordotic curvature. Cervical paraspinous muscles show symmetrical inspection with palpation shows some moderate tenderness diffusely in the bilateral middle and lower distribution the paraspinous musculature without radiation without trigger points. Patient shows good rotation motion cervical spine both laterally greater than 45 degrees closer to 90 degrees right and left with some moderate pain reported with left lateral rotation also with extension was performed fully and forward flexion is much more comfortable and performed fully as well as chin to chest. There is slightly increased thoracic kyphosis, some minor flattening of the lumbar lordotic curvature. Lumbar paraspinous muscles show symmetrical on inspection, on palpation shows some moderate tenderness diffusely throughout the upper, middle and lower distribution of the paraspinous muscles bilaterally and also into the lower thoracic paraspinous musculature, firm and tender, but without specific trigger points, without radiation of pain. The patient has good rotational motion of the lumbar spine, both laterally as well as extension and flexion without significant difficulty. No tenderness over the spinous processes, sacrum or sacroiliac regions. EXTREMITIES: Upper extremities show deep tendon reflexes 2+ in the biceps and triceps tendons. Motor exam is 5 on a scale of 5 with right rib strength, biceps and triceps flexion and 4/5 on the left. Peripheral pulses are 2+ radial. No peripheral edema is noted bilaterally. Upper extremities are warm and dry to touch, equal in color and appearance. SKIN: Shows warm and dry, good turgor. No edema. No sores, rashes or bruising throughout. IMPRESSION: Impression: 74-year-old male with long history neck and left upper extremity pain worse over the past year or so in a radicular fashion. MRI scan cervical spine showing advanced multilevel cervical spondylosis most prominent at C3-4 and C5-6 with severe central canal narrowing cord flattening with posterior disc osteophyte complex at C6-7 with severe bilateral neuroforaminal narrowing left greater than right. Diabetes Arthritis Hypertension History of prostate cancer Plan: Options were discussed with the patient including conservative medical management physical therapies interventional techniques. Patient had physical therapy and is currently taking qxit-hcx-kageaqy analgesics and doing stretching and strengthening daily he like to pursue interventional techniques. We discussed a cervical epidural steroid injection using description as well as anatomical models to describe the procedure. Patient wait for preauthorization with insurance provider and once this is obtained we will plan on a translaminar approach C6-7 level cervical epidural steroid injection at that time. In the meantime, patient will continue with stretching strength exercises and analgesics as currently. EITAN FOREMAN MD May 20, 2020 11:12
== END | disposition home or self-care (01) ==
LOC: PNCL 09:57
PROVIDERS: ATTEND Anesthesiology
DX: M54.2 Cervicalgia (principal); M25.512 Pain in left shoulder; M19.90 Unspecified osteoarthritis, unspecified site; I10 Essential (primary) hypertension; E11.9 Type 2 diabetes mellitus without complications; Z79.4 Long term (current) use of insulin; Z85.46 Personal history of malignant neoplasm of prostate; Z98.890 Other specified postprocedural states; Z96.653 Presence of artificial knee joint, bilateral
CPT/HCPCS: G0463

== ENCOUNTER → 2020-06-03 | Outpatient (CLI) | payer MEDICARE ==
[~2020-06-03] MED LIST changes: +IOHEXOL 180 MG/ML 10 ML VIAL. ONE; +methylPREDNISolone ACETATE 40 MG/ML VIAL. ONE; +methylPREDNISolone ACETATE 80 MG/ML VIAL. ONE
--- NOTE | 2020-06-03 11:17 | PDOC ---
Progress Note - Pain Clinic Date of Service: DOS: DATE: 06/03/20 TIME: 11:13 Diagnosis: Dx: Cervical radiculopathy with cervical degenerative disease cervical spinal stenosis and spondylosis History or Present Illness: HPI: 74-year-old male returns follow-up status post initial evaluation and preauthorization for cervical epidural steroid injection. Patient is obtained that they would like to proceed patient reports still significant pain base the neck and left upper extremity as it was previously into the posterior shoulder anterior lateral deltoid posterior triceps into the forearm into the fourth and fifth fingers patient reports is worse with reaching weightbearing weight lifting repetitive motions with his left arm reaching over his head with his left hand disturbed sleep occasionally not every night patient reports pain to 10 on scale 10 is worse over the past week 7 on average 5 its least and is a 7 today patient describes it as cramping and aching radiating shooting in the left arm and base of the neck. Patient reports no new motor or sensory deficits or other complaints. Physical Exam: VS: Pressure is 146/82 pulse 88 respirations 16 temperature 98.1 F height is 5 feet 9 inches weight is 210 pounds PE: PHYSICAL EXAMINATION: GENERAL: The patient is awake, alert, oriented, appropriate, very pleasant demeanor HEENT: Shows normocephalic, atraumatic. Extraocular movements are intact and symmetrical. Oral cavity: Mucous membranes moist and pink. Dentition is inta ct. NECK: Shows anterior throat supple without palpable lymphadenopathy noted. Swallow reflex symmetrical. CHEST: Shows normal on inspection. Breath sounds are clear bilaterally. HEART: Shows S1, S2 clear. No murmurs auscultated. ABDOMEN: Soft, nontender, nondistended. No palpable organomegaly is noted. BACK: Shows spine grossly in the midline. Normal-appearing cervical lordotic curvature. Cervical paraspinous muscles show symmetrical on inspection on palpation some moderate tenderness diffusely in the middle and inferior aspect the cervical paraspinous muscle more on the left than the right but without trigger points without asymmetry or atrophy hypertrophy. Patient shows good rotation motion cervical spine both laterally as well as extension flexion without significant increase in pain. There is slightly increased thoracic kyphosis, some minor flattening of the lumbar lordotic curvature. EXTREMITIES: Upper extremities show deep tendon reflexes 2 in the biceps and triceps tendons. Motor exam is 5 on a scale of 5 with right rib strength, biceps and triceps flexion and 4/5 on the left. Peripheral pulses are 2+ radial. No peripheral edema is noted bilaterally. Upper extremities are warm and dry to touch, equal in color and appearance. SKIN: Shows warm and dry, good turgor. No edema. No sores, rashes or bruising throughout. Procedure: Procedure: Options were discussed with the patient. Patient chart reviewed his his current medication regimen updated current review of systems updated today as well. We will proceed with a cervical epidural steroid injection stable fluoroscopic guidance. Risks were discussed including but not limited to: Bleeding, infection, possibility of epidural hematoma and subsequent neurological compromise, dural puncture, headaches, spinal cord and/or nerve damage, side effects of steroid medication, and poor results regarding pain control. Patient understands and wished to proceed. Patient return to clinic in approximate 2 weeks for follow-up, was counseled as to return appointment activity level and side effects to be aware of. Medication Injected: Med Injected: Procedure cervical epidural steroid injection at the C6-7 level, using local anesthetic under sterile prep and drape using C-arm fluoroscopic guidance under local anesthesia medications injected ; 120 mg Depo-Medrol + 5 mL normal saline and 2 mL contrast; condition at discharge is stable patient tolerated procedure well. and had no complications Condition at Discharge: Condition at Discharge: Condition at discharge stable, patient already procedure well and had no complications. EITAN FOREMAN MD Jun 03, 2020 11:17
--- NOTE | 2020-06-03 11:17 | PDOC4 ---
PROCEDURE Procedure Patient was consented for cervical epidural steroid injection. Risks were d iscussed including but not limited to: Bleeding, infection, possibility of epidural hematoma and subsequent neurological compromise, dural puncture, headaches, spinal cord and/or nerve damage, side effects of steroid medication, and poor results regarding pain control. Patient understands and wished to proceed. Procedure cervical epidural steroid injection at the C6-7 level, using local anesthetic under sterile prep and drape using C-arm fluoroscopic guidance under local anesthesia medications injected ; 120 mg Depo-Medrol + 5 mL normal saline and 2 mL contrast; condition at discharge is stable patient tolerated procedure well. and had no complications EITAN FOREMAN MD Jun 03, 2020 11:17
== END | disposition home or self-care (01) ==
LOC: PNCL 10:23
PROVIDERS: ATTEND Anesthesiology
DX: M50.10 Cervical disc disorder with radiculopathy, unspecified cervical region (principal); M48.02 Spinal stenosis, cervical region; I10 Essential (primary) hypertension; E11.42 Type 2 diabetes mellitus with diabetic polyneuropathy; E78.00 Pure hypercholesterolemia, unspecified; J45.909 Unspecified asthma, uncomplicated; G47.30 Sleep apnea, unspecified; E66.9 Obesity, unspecified; K21.9 Gastro-esophageal reflux disease without esophagitis; M19.90 Unspecified osteoarthritis, unspecified site; Z87.891 Personal history of nicotine dependence; Z79.84 Long term (current) use of oral hypoglycemic drugs; Z79.899 Other long term (current) drug therapy; Z72.89 Other problems related to lifestyle; Z98.890 Other specified postprocedural states
CPT/HCPCS: 62321; J1030; J1040; Q9965

== ENCOUNTER → 2020-06-17 | Outpatient (CLI) | payer MEDICARE ==
[~2020-06-17] MED LIST changes: -IOHEXOL 180 MG/ML 10 ML VIAL. ONE; -methylPREDNISolone ACETATE 40 MG/ML VIAL. ONE; -methylPREDNISolone ACETATE 80 MG/ML VIAL. ONE
--- NOTE | 2020-06-17 12:07 | PDOC ---
Progress Note - Pain Clinic Date of Service: DOS: DATE: 06/17/20 TIME: 12:04 Diagnosis: Dx: Cervical radiculopathy with cervical degenerative disc disease cervical spinal stenosis and cervical spondylosis History or Present Illness: HPI: 74-year-old male returns for follow-up status post cervical epidural steroid injection x1. Patient reports about 75% improvement initially now about 60% as time is going on and has been 3 weeks since his last bursitis injection patient reports he is increasing his activity with greater ease and comfort using his left arm with much greater strength and mobility but the pain is returning down the base the neck shoulder radiating into the anterior deltoid anterior biceps into the forearm into the thumb and first finger as well on the left side with some tingling and numbness also shooting pain is on and off in intensity worse with activity worse with reaching over his head with his left arm. Patient reports awakening from sleep once again about every 3-4 hours initially was doing much better with sleeping doing work activities household activities travel with greater ease and comfort as well as sleeping better but is beginning to return now in a radicular pattern in the left arm. Patient rates it as a 6 on a scale at times over the past week least worst and average and is a 6 today. Patient reports no new motor or sensory deficits. Physical Exam: VS: Blood pressure is 145/81 pulse 105 respirations 18 temperature 98.1 F weight is 210 pounds PE: PHYSICAL EXAMINATION: GENERAL: The patient is awake, alert, oriented, appropriate, very pleasant demeanor HEENT: Shows normocephalic, atraumatic. Extraocular movements are intact and symmetrical. Oral cavity: Mucous membranes moist and pink. NECK: Shows anterior throat supple without palpable lymphadenopathy noted. Swallow reflex symmetrical. CHEST: Shows normal on inspection. Breath sounds are clear bilaterally, no rales or rhonchi. HEART: Shows S1, S2 clear. No murmurs auscultated. ABDOMEN: Soft, nontender, nondistended, obese. No palpable organomegaly is noted. BACK: Shows spine grossly in the midline. Normal-appearing cervical lordotic curvature. Cervical paraspinous muscles show symmetrical with inspection with palpation shows some moderate tenderness only diffusely in the inferior aspect the cervical paraspinous muscles are on the left only and into the superior medial aspect of the trapezius on the left but without specific trigger points radiation or asymmetry. Neck shows full rotation motion both laterally as well as full extension full forward flexion without significant pain reported. There is slightly increased thoracic kyphosis, some minor flattening of the lumbar lordotic curvature. EXTREMITIES: Upper extremities show deep tendon reflexes 2+ in the biceps and triceps tendons. 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 Peripheral pulses are 2 radial. No peripheral edema is noted bilaterally. Upper extremities are warm and dry to touch, equal in color and appearance. SKIN: Shows warm and dry, good turgor. No edema. No sores, rashes or bruising throughout. Procedure: Procedure: Options were discussed with the patient. Patient chart was reviewed his current medication regimen updated current review of systems updated today as well. We will preauthorize patient for a second cervical epidural steroid injection states he did very well with the first injection with the pain returning now in a radicular fashion following a C6-7 dermatomal distribution in the left upper extremity. Once all preauthorization is obtained we will plan on return for translaminar approach at the C6-7 level cervical epidural steroid injection with fluoroscopic guidance. Medication Injected: Med Injected: None Condition at Discharge: Condition at Discharge: Condition at discharge is stable, patient already procedure well and had no complications. EITAN FOREMAN MD Jun 17, 2020 12:07
== END | disposition home or self-care (01) ==
LOC: PNCL 11:10
PROVIDERS: ATTEND Anesthesiology
DX: M50.10 Cervical disc disorder with radiculopathy, unspecified cervical region (principal); M48.02 Spinal stenosis, cervical region; M47.812 Spondylosis without myelopathy or radiculopathy, cervical region; I10 Essential (primary) hypertension; E78.00 Pure hypercholesterolemia, unspecified; K21.9 Gastro-esophageal reflux disease without esophagitis; E66.9 Obesity, unspecified; G47.30 Sleep apnea, unspecified; M19.90 Unspecified osteoarthritis, unspecified site; E11.42 Type 2 diabetes mellitus with diabetic polyneuropathy; Z79.899 Other long term (current) drug therapy; Z98.890 Other specified postprocedural states; Z87.891 Personal history of nicotine dependence; Z79.84 Long term (current) use of oral hypoglycemic drugs; Z72.89 Other problems related to lifestyle
CPT/HCPCS: 99212; G0463

== ENCOUNTER → 2021-01-24 | Outpatient (CLI) | payer MEDICARE ==
[~2021-01-24] MED LIST changes: +CYCL10TA19 PO; -CYCL10TA2 PO
--- NOTE | 2021-01-24 15:27 | KCIC ---
2 views of the left knee compared to similar exam dated August 11, 2018 for chronic left knee pain. 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 The patella appears to abut the femoral prosthesis with m inimal or nonexistent patellofemoral joint space. No suspicious periprosthetic lucencies. No fracture or acute osseous abnormalities. There are innumerable dystrophic calcifications about the joint, whi ch are more conspicuous on the prior exam as well. Suprapatellar joint effusion is suspected. IMPRESSION: 1. No acute osseous abnormalities. 2. Postsurgical and degenerative changes as described. Electronically signed by: Christiano Gilbert MD (01/24/2021 3:25 PM) [id number]
== END ==
LOC: KCIC 08:03
PROVIDERS: ATTEND Family Medicine
DX: M25.562 Pain in left knee (principal); Z96.652 Presence of left artificial knee joint
CPT/HCPCS: 73560

== ENCOUNTER → 2021-02-28 | Outpatient (CLI) | payer MEDICARE ==
--- NOTE | 2021-03-04 09:10 | PATHOLOGY ---
[facility] Accession Number: [id number] . 01 Material submitted: . PART A: forehead - MID FOREHEAD CYST. Modifiers: mid PART B: forehead - LEFT FOREHEAD LESION. Modifiers: left PART C: canthus - LEFT CANTHAL CYST. Modifiers: left . 01 Clinician provided ICD-10: L72.0 H02.826 . 01 Clinical history: . EPIDERMAL CYSTS PATHOLOGY S... . 02 Diagnosis: A. Fibrous tissue, mid forehead cyst: - Steatocystoma. . B. Skin and skeletal muscle tissue, left forehead lesion: - Focal dermal scarring and granulomatous inflammation. . C. Left canthal cyst: - Keratinaceous material consistent with cyst contents. . (JPM:clementina; 03/03/2021) [facility] 03/04/2021 0840 Local . 02 Comment: Sections of the left forehead lesion show focal dermal scarring and granulomatous inflammation with a few admixed eosinophils. The differential diagnosis includes a remote ruptured cyst or follicle, and remote arthropod assault. There is no evidence of malignancy. . Sections of the left canthal cyst reveal fragments of keratinaceous material. There is no epithelial lining present. The findings could be compatible with an epidermal inclusion cyst. . The case is also examined by Dr. Jaimes, dermatopathologist, who concurs with the diagnoses. . (ALEXM:clementina; 03/03/2021) . 02 Electronically signed: . Gurpreet Carter MD, Pathologist NPI- [id number] . 01 Gross description: . A. The specimen is received in formalin, labeled "Alvarez, Domingo, mid forehead cyst". Received is an irregular segment of bronson-brown, possible cystic tissue measuring 0.6 cm in maximum dimension. The specimen is intact and entirely submitted in cassette A1. . B. The specimen is received in formalin, labeled "Domingo Alvarez, left forehead lesion". Received is an irregular segment of skin measuring 1.1 x 0.3 x 0.6 cm in greatest dimensions. The epidermal surface is dark brown and wrinkled in appearance. The surgical margin is inked. The specimen is serially sectioned and entirely submitted in cassette B1. . C. The specimen is received in formalin, labeled "Domingo Alvarez, left canthal cyst". Received are multiple pale yellow to pale dinh, friable fragments of possible tissue measuring 2.0 x 0.4 x 0.1 cm in aggregate dimensions. The specimen is filtered and entirely submitted in cassette C1. ([facility]; 03/02/2021) NRI/NRI 03/03/2021 1328 Local . 02 Pathologist provided ICD-10: L72.3, L90.5, L08.9 . 02 CPT . 162690, [id number], [id number] Specimen Comment: A courtesy copy of this report has been sent to [phone], [phone] Specimen Comment: [id number] Specimen Comment: Report sent to / DR SALINAS Performed at: 01 [facility] [address], [place], [place] [id number] MD Julio Gibson MD Phone: [phone] Performed at: 02 [facility] [address], [place] [id number] MD Gurpreet Carter MD Phone: [phone]
== END ==
LOC: SPEC 15:53
PROVIDERS: ATTEND Plastic Surgery
DX: L72.3 Sebaceous cyst (principal); L90.5 Scar conditions and fibrosis of skin; L08.9 Local infection of the skin and subcutaneous tissue, unspecified; L72.0 Epidermal cyst; H02.826 Cysts of left eye, unspecified eyelid
CPT/HCPCS: 88304